=== PATIENT | female | born 1965 | race Caucasian/White ===

== ENCOUNTER 2017-06-18 06:50 | Day surgery (SDC) | payer BC ==
[~2017-06-18 06:50] MED LIST: Acetaminophen TAB* 325 MG ONE; Acetaminophen TAB* 325 MG PO ONE; Buffered Lidocaine 0.9% SYRIN* 5 ML/SYR SYRINGE INTRADERM ONE; Dexamethasone IV* 4 MG/ML 1 ML (4 MG) ONE; Dexamethasone TAB* 4 MG PO ONE; Sodium Citrate/Citric Acid* 15 ML UDC ONE; Sodium Citrate/Citric Acid* 15 ML UDC PO ONE
[2017-06-18] MEDS ORDERED: ceFAZolin 2 GM PREMIX (*) 50 ML IVPB ONE (07:04)
[2017-06-18] MEDS ORDERED: fentaNYL* 50 MCG/ML 2 ML VIAL (100 MCG VIAL) ONE (07:05)
[2017-06-18] MEDS ORDERED: Propofol* 10 MG/ML 20 ML BTL IV PUSH ONE (07:05)
[2017-06-18] MEDS ORDERED: Midazolam* 1 MG/ML 2 ML VIAL (2 MG) ONE ×2 (07:05→08:58)
[2017-06-18] MEDS ORDERED: Lidocaine 2% PF * 5 ML VIAL ONE (07:05)
[2017-06-18] MEDS ORDERED: Lidocaine 1% INJ* 10 MG/ML 30 ML SDV ONE (07:24)
[2017-06-18] MEDS ORDERED: Dexamethasone IV* 4 MG/ML 1 ML (4 MG) ONE ×2 (07:24→07:29)
[2017-06-18] MEDS ORDERED: Bupivacaine 0.5% SDV PF* 30 ML VIAL ONE (07:24)
[2017-06-18] MEDS ORDERED: Ondansetron INJ* 2 MG/ML VIAL IV PRN (08:23)
[2017-06-18] MEDS ORDERED: oxyCODONE TAB* 5 MG TAB PO PRN (08:23)
[2017-06-18] MEDS ORDERED: fentaNYL* 50 MCG/ML 2 ML VIAL (100 MCG VIAL) IV PRN (08:23)
[2017-06-18] MEDS ORDERED: HYDROmorphone INJ* 1 MG/ML CARPUJECT SYRINGE IV PRN (08:23)
[2017-06-18] MEDS ORDERED: Ibuprofen TAB* 600 MG PO PRN (08:23)
[2017-06-18 10:09] VITALS: BP 108/78
--- NOTE | 2017-06-18 14:42 | OP ---
OPERATIVE REPORT: DATE OF OPERATION: 06/18/17 - JUAN DATE OF : 63 SURGEON: Ottoniel Allen DPM. IT CONSULTING MANAGER: None. ANESTHESIOLOGIST: Madeleine Duff MD. ANESTHESIA: MAC with local. PRE-OP DIAGNOSIS: Painful bunion deformity with hallux limitus, right foot. POST-OP DIAGNOSIS: Painful bunion deformity with hallux limitus, right foot. OPERATIVE PROCEDURE: Bunionectomy with first metatarsal osteotomy and phalangeal osteotomy in the right foot. PATHOLOGY: Degenerative bone. HEMOSTASIS: Pneumatic ankle tourniquet. MATERIALS: Two of the 3.0 mm [place] cannulated screws. INDICATIONS: The patient with chronic right forefoot pain and deformity with hypertrophic first metatarsal head medially and dorsally, decreased range of motion, lateral deviation of the great toe, increase in the intermetatarsal angle, pain while wearing shoes and walking. She opts for surgery at this time to decrease pain and improve function. DESCRIPTION OF PROCEDURE: The patient was brought to the operating room, placed on the operating table in the supine position. The anesthesia department administered IV sedation and a peripheral nerve block was performed about the right forefoot with a 1:1 mixture of 1% lidocaine plain and 0.5% Marcaine plain. The right foot was prepped and draped in the usual fashion. The right foot was then exsanguinated and a pneumatic ankle tourniquet was inflated to 250 mmHg above a well-padded right ankle. Attention was directed to the dorsal medial aspect of the right great toe joint where a curvilinear incision was made. The incision was deepened through the subcutaneous tissues with care being taken to retract neurovascular structures and cauterize the superficial bleeders as needed. An inverted L capsular incision was made to allow for exposure of the joint. There was noted to be hypertrophic bone and some partial and full thickness cartilaginous erosions noted medially in the first metatarsal head, dorsomedially and a small area just medial and relatively plantar adjacent to the crest on the first metatarsal head. There was some hypertrophic bone along the dorsal aspect of the proximal phalanx as well. Next using the sagittal saw, the hypertrophic bone was resected medially and a rongeur was used to resect the hypertrophic bone from the dorsal aspect of the base of the proximal phalanx. Next, a lateral release was performed and surgical site was flushed with copious amount of normal sterile saline. Next a first metatarsal head osteotomy was performed, a Chevron type osteotomy with apex just dorsal and proximal to the geometric center. The plantar wing was cut from medial to lateral angle slightly plantar laterally to offer some plantar flexion of the capital fragment. Next the dorsal limb was cut and capital fragment was transposed laterally to the desired position. Temporary fixation was achieved with a wire from the screw set and the position was checked with C-arm. Next using standard technique, a 3.0 mm cannulated screw was placed across the osteotomy site with care being taken to ensure the tip of the screw was not protruding into the joint. The redundant medial shelf of bone was resected and the temporary fixation was removed. The osteotomy was found to be solid with no detectable motion or gapping. The screw was two fingers tight. Next, an angular phalangeal osteotomy was performed from distal medial to more proximal lateral with the medial base wedge of bone resected. The osteotomy was reduced, placed in the corrected position and using the wire and bone clamp for temporary fixation. The position was assessed with a C-arm and with adequate reduction and using standard technique, the 3.0 mm cannulated [place] screw was placed across the osteotomy site. The temporary fixation was removed. The osteotomy was solid with no detectable motion or gapping. Power lee was used to smoothen the rough edges. The surgical site was flushed with copious amount of normal sterile saline. Medial capsulorrhaphy was performed resecting redundant medial capsule, the capsule and periosteal tissue was reapproximated and secured by holding the hallux in the rectus position with 2- 0 Vicryl. Subcutaneous tissues were reapproximated with 4-0 Vicryl, the skin was reapproximated with 5-0 nylon. Dexamethasone phosphate 12 mg was infiltrated about the surgical site and surgical site was dressed with Xeroform gauze and a light dressing with 4x4 gauze, [place] and light [place]an wrap. A pneumatic ankle tourniquet was deflated about the right ankle and prompt hyperemic response was noted about all 5 digits of the patient's right foot. Having appeared to tolerate the procedures and anesthesia well, the patient was transported via the cart from the operating room to Recovery in satisfactory condition with capillary refill less than 3 seconds to all digits of the right foot. [id number]/[facility] #: [id number] MTDD
--- NOTE | 2017-06-19 09:40 | RAD ---
CPT II Codes: 6045F INDICATION: Osteotomy of the great toe. Fluoroscopic services provided for referring physician. 33 seconds of fluoroscopy time was used. 5 spot images demonstrates osteotomy of the phalanx of the great toe. IMPRESSION: Fluoroscopic services provided for referring physician for osteotomy of the proximal phalanx of the great toe.
== END 2017-06-18 10:27 | disposition home or self-care (01) ==
LOC: OREAST 06:50
PROVIDERS: ATTEND Podiatrist Foot Surgery
DX: M21.611 Bunion of right foot (principal); M20.5X1 Other deformities of toe(s) (acquired), right foot; E78.5 Hyperlipidemia, unspecified; K21.9 Gastro-esophageal reflux disease without esophagitis; G47.30 Sleep apnea, unspecified; F41.9 Anxiety disorder, unspecified; E55.9 Vitamin D deficiency, unspecified
CPT/HCPCS: 76000; 88304; 88311; A9270-GY; C1713; C1776; J0690; J1100; J2001; J2250; J2704; J3010